=== PATIENT | female | born 1985 | race Two or more races ===

== ENCOUNTER 2024-03-13 11:14 | Emergency (ER) | payer BC, OTHER ==
[~2024-03-13] VITALS: Ht 160 cm; Wt 94.3 kg
[2024-03-13 12:07] VITALS: TEMP 98.4; O2SAT 98
[2024-03-13 13:06] LABS: Urine Bacteria FEW /hpf (None Seen); Urine Blood Negative /uL (Negative); Urine Clarity Turbid (Clear); Urine Color Light-Yellow (Yellow); Urine Mucus FEW (None Seen); Urine Protein, UAD Negative (Negative); Urine Specific Gravity 1.019 (1.001-1.035); Urine Urobilinogen Normal (Negative); Urine WBC 6 /hpf (0 - 5)
[2024-03-13] MEDS: HYDROmorphone HCL 2 MG/ML VL/or syr IM ONE (13:36)
[2024-03-13] MEDS: ONDANSETRON HCL 4 MG/2 ML VIAL IM ONE (13:37)
--- NOTE | 2024-03-13 13:53 | DVH ---
EXAM: XY CERVICAL SPINE 3V INDICATION: pain COMPARISON: None TECHNIQUE: 3 views of the cervical spine were obtained. Findings: There is no evidence of an acute fracture, spondylolysis, or spondylolisthesis. The vertebral body heights and disc spaces are well-maintained. No blastic or lytic lesions are appreciated. No radiopaque foreign bodies. No superficial soft tissue abnormalities. Impression: 1. No acute osseous abnormality.
[2024-03-13] MEDS ORDERED: NITR-87 PO (14:02)
[2024-03-13] MEDS ORDERED: HYDR-4902 PO (14:03)
[2024-03-13 14:06] VITALS: BP 120/72; PULSE 89; RESP 16
--- NOTE | 2024-03-13 14:10 | ED.PDOC ---
History of Present Illness HPI Comments 39-year-old female who comes in with chief complaint of neck pain that goes down to the upper back. The patient states that the pain is approximately an 8/10. She denies any recent trauma but states that she has been dealing with this pain since 2018. She has had multiple lower back surgeries. She states that she is scheduled to see her physician but the pain was unbearable so she came to the emergency department's for evaluation. She denies any fever or chills. Chief Complaint: Neck Pain Time Seen by MD: 13:05 Primary Care Provider: CHRIS Reviewed Notes: Nurses Notes, Medications, Allergies Allergies: Coded Allergies: Morphine (Verified Adverse Reaction, Unknown, CARLOSCHDeepali, 03/13/24) Home Meds Active Scripts Hydrocodone-Acetaminophen (Hydrocodone Bitartrate/AC 5-325 mg) 1 Tab Tab, 1 TAB PO Q8HP PRN for 7 Days, #21 TAB Prov:DILCIA CARTWRIGHT MD 03/13/24 Nitrofurantoin Monohydrate Mac (Macrobid) 100 Mg Cap, 100 MG PO BID for 5 Days, #10 CAP Prov:DILCIA CARTWRIGHT MD 03/13/24 Information Source: Patient Mode of Arrival: Ambulatory Severity: Mild Timing: Days Duration: Since onset Prehospital treatment: None Associated signs and symptoms Neck pain and upper back pain Past Medical History PAST MEDICAL HISTORY: DM, High Lipids, Denies Past Medical History (Other): Pancreatitis Surgical History: BTL, Tonsillectomy Surgical History (Other): Back surgery [employer]BER[employer] SALES REPRESENTATIVE History: No Pertinent [employer]BER[employer] SALES REPRESENTATIVE History Family History Family History: Family hx of DM, Family hx of Cancer Social History Smoker: Non-Smoker Alcohol: Occasionally Drugs: Marijuana Lives In: Home Constitutional: denies: chills, diaphoresis, fatigue, fever, malaise, sweats, weakness, others EENTM: denies: blurred vision, double vision, ear bleeding, ear discharge, ear drainage, ear pain, ear ringing, eye pain, eye redness, hearing loss, mouth pain, mouth swelling, nasal discharge, nose bleeding, nose congestion, nose pain, photophobia, tearing, throat pain, throat swelling, voice changes, others Respiratory: denies: cough, hemoptysis, orthopnea, SOB at rest, shortness of breath, SOB with excertion, stridor, wheezing, others Cardiovascular: denies: chest pain, dizzy spells, diaphoresis, Dyspnea on exertion, edema, irregular heart beat, left arm pain, lightheadedness, palpitations, PND, syncope, others Gastrointestinal: denies: abdomen distended, abdominal pain, blood streaked bowels, constipated, diarrhea, dysphagia, difficulty swallowing, hematemesis, melena, nausea, poor appetite, poor fluid intake, rectal bleeding, rectal pain, vomiting, others Genitourinary: denies: abnormal vagina bleeding, burning, dyspareunia, dysuria, flank pain, frequency, hematuria, incontinence, pain, , vagina discharge, urgency, others Neurological: denies: dizziness, fainting, headache, left sided numbness, left sided weakness, numbness, paresthesia, pre-existing deficit, right sided numbness, right sided weakness, seizure, speech problems, tingling, tremors, weakness, others Musculoskeletal: reports: neck pain; denies: back pain, gout, joint pain, joint swelling, muscle pain, muscle stiffness, others Integumetry: denies: bruises, change in color, change in hair/nails, dryness, laceration, lesions, lumps, rash, wounds, others Allergic/Immunocompromised: denies: Difficulty Healing, Frequent Infections, Hives, Itching, others Hematologic/Lymphatic: denies: anemia, blood clots, easy bleeding, easy bruising, swollen glands, others Endocrine: denies: excessive hunger, excessive sweating, excessive thirst, excessive urination, flushing, intolerance to cold, intolerance to heat, unexplained weight gain, unexplained weight loss, others Psychiatric: denies: anxiety, bipolar disorder, depression, hopeless, panic disorder, schizophrenia, sleepless, suicidal, others Physical Exam General Appearance: Mild Distress HEENT: Normal ENT Inspection, Pharynx Normal, TMs Normal Neck: Limited Range of Motion, Supple, Tender Lateral Respiratory: Chest Non-Tender, Lungs Clear, No Accessory Muscle Use, No Respiratory Distress, Normal Breath Sounds Cardiovascular: No Edema, No JVD, No Murmur, No Gallop, Normal Peripheral Pulses, Regular Rate/Rhythm Breast Exam: Deferred Gastrointestinal: No Organomegaly, Non Tender, No Pulsatile Mass, Normal Bowel Sounds, Soft Genitalia: Deferred Pelvic: Deferred Rectal: Deferred Extremities: No calf tenderness, Normal capillary refill, Normal inspection, Normal range of motion, Non-tender, No pedal edema Musculoskeletal : Apperance: Normal Neurologic: Alert, psychology intern II-XII nml as Tested, No Motor Deficits, Normal Affect, Normal Mood, No Sensory Deficits Cerebellar Function: Normal Reflexes: Normal Skin: Dry, Normal Color, Warm Lymphatic: No Adenopathy Was a procedure done? Was a procedure done?: No Differential Dx Considerations may include: Fracture, strain, subluxation X-Ray, Labs, Meds, VS Vital Signs Date Time Temp Pulse Resp B/P (MAP) Pulse Ox O2 Delivery O2 Flow Rate FiO2 03/13/24 13:36 92 20 128/77 03/13/24 12:07 98.4 92 20 128/77 (94) 98 98.4 03/13/24 12:07 92 20 98 Room Air 03/13/24 11:20 98.0 84 18 143/88 (106) 98 Lab Test 03/13/24 11:52 Range/Units Urine Color Light-yellow Yellow Urine Clarity Turbid H Clear Urine pH 5.0 5.0-9.0 Urine Specific [facility] 1.019 1.001-1.035 Urine Protein Negative Negative Urine Ketones Negative Negative Urine Blood Negative Negative /uL Urine Nitrite 2+ H Negative Urine Bilirubin Negative Negative Urine Urobilinogen Normal Negative mg/dL Urine Leukocyte Esterase 2+ Negative /uL Urine RBC 8 0 - 4 /hpf Urine WBC 6 0 - 5 /hpf Urine Squamous Epithelial Cells Mod <5 /hpf Urine Bacteria Few H None Seen /hpf Urine Mucus Few None Seen Urine Glucose 4+ H Normal mg/dL Current Medications Medications (Trade) Dose Ordered Sig/[facility] Route Start Time Stop Time Status Last Admin Hydromorphone HCl (Dilaudid Injection) 1 mg ONCE ONCE IM 03/13/24 13:30 03/13/24 13:31 DC 03/13/24 13:36 Ondansetron HCl (Zofran) 4 mg ONCE ONCE IM 03/13/24 13:30 03/13/24 13:31 DC 03/13/24 13:37 The patient was given Dilaudid 1 mg IM The patient was given Zofran 4 mg IM The urine test is positive for UTI The patient was given a prescription for the infection in the urine The patient will follow up primary care doctor The patient will return to the emergency department's condition worsens We advise the patient that she needs an MRI. We did do an x-ray of the neck which shows: No sign of any acute disease The patient was discharged. Images Reviewed?: Images reviewed and evaluated by me Time of 1ST Reevaluation: 14:08 Reevaluation 1ST: Improved Patient Education/Counseling: Diagnosis, Treatment, Prognosis, Need For Follow Up Family Education/Counseling: Diagnosis, Treatment, Prognosis, Need For Follow Up Departure 1 Departure Time of Disposition: 14:09 Impression: Primary Impression: Cervical strain Qualified Codes: S16.1XXA - Strain of muscle, fascia and tendon at neck level, initial encounter Additional Impression: UTI (urinary tract infection) Qualified Codes: N30.00 - Acute cystitis without hematuria Disposition: 01 HOME / SELF CARE / HOMELESS Condition: Fair e-Prescriptions Hydrocodone-Acetaminophen (Hydrocodone Bitartrate/AC 5-325 mg) 1 Tab Tab 1 TAB PO Q8HP PRN for 7 Days, #21 TAB Prov: DILCIA CARTWRIGHT MD 03/13/24 Nitrofurantoin Monohydrate Mac (Macrobid) 100 Mg Cap 100 MG PO BID for 5 Days, #10 CAP Prov: DILCIA CARTWRIGHT MD 03/13/24 Discharged With: Self Critical Care Note Critical Care Time?: No Stability Stability form required: No Heart Score Heart Score: Heart Score Response (Comments) Value History N/A 0 EKG N/A 0 Age N/A 0 Risk Factors N/A 0 Troponin N/A 0 Total 0 DILCIA CARTWRIGHT MD Mar 13, 2024 14:10
== END 2024-03-13 14:37 | disposition home or self-care (01) ==
LOC: ER 11:14
DX: S16.1XXA Strain of muscle, fascia and tendon at neck level, initial encounter (principal); N39.0 Urinary tract infection, site not specified; E11.9 Type 2 diabetes mellitus without complications; E78.5 Hyperlipidemia, unspecified; Z79.899 Other long term (current) drug therapy; Z90.89 Acquired absence of other organs; Z98.51 Tubal ligation status; Z88.5 Allergy status to narcotic agent; X58.XXXA Exposure to other specified factors, initial encounter; Y93.89 Activity, other specified; Y92.89 Other specified places as the place of occurrence of the external cause; Y99.8 Other external cause status
CPT/HCPCS: 72040; 81001; 96372; 99284; J1171; J2405